=== PATIENT | male | born 1990 | race Caucasian/White ===

== ENCOUNTER 2021-02-21 16:03 | Emergency (ER) | payer SELFPAY ==
[~2021-02-21] VITALS: Ht 175.3 cm; Wt 93.0 kg
--- NOTE | 2021-02-21 16:25 | NUR ---
Dr. Morales at the bedside evaluating patient
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
--- NOTE | 2021-02-21 16:37 | NUR ---
xray at the bedside
--- NOTE | 2021-02-21 16:38 | NUR ---
PT REFUSED X-RAY.
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
== END 2021-02-21 17:15 ==
LOC: EDBD 16:03 → MED 16:03
DX: S80.12XA Contusion of left lower leg, initial encounter (principal); S09.8XXA Other specified injuries of head, initial encounter; S80.11XA Contusion of right lower leg, initial encounter; F15.10 Other stimulant abuse, uncomplicated; Y35.99XA Legal intervention, means unspecified, unspecified person injured, initial encounter; Y93.89 Activity, other specified; Y92.89 Other specified places as the place of occurrence of the external cause; Y99.8 Other external cause status
CPT/HCPCS: 99283